=== PATIENT | male | born 1935 | race Caucasian/White ===

== ENCOUNTER 2017-02-28 12:48 | Emergency (ER) | payer MEDICARE, OTHER ==
[~2017-02-28 12:48] MED LIST: ACETSUP650 PR; ACETUDL PO; ALBUTEROL 2.5MG/3ML INH; ANALGESI EX; ANTI-FUNGAL2 % EX; ARGINAID PO; ARIXTRA2.5 SC; ASPERCREME101 EX; ATROVENT INH; ATV.5 PO; AZACTAM1 IV; BACTROCR TOP; BAZA TOP; BENTYL10 PO; BETADINE 10% EX; BUM1 PO; C1 PO; C25 PO; C5 PO; CALMOSEPTINE TOP; CIP5 PO; CORDARONE PO; COREG6 PO; COUMADIN3 MG PO; COUMADIN4 MG PO; COUMADIN6 MG PO; CRESTOR10 PO; DESITIN TOP; DIGITEK0.125 MG PO; DIL4TAB PO; DURA12 TOP; ELTA CREAM T; ENALAPRIL MALEATE PO; FAMOTIDINE 20 MG OR; GENASYME80 MG PO; GLUCERNA PO; HYDRO/APAP PO; HYDROCO; INSNOVR SC; KCL20UDL PO; KDUR20 PO; KLOR-CON 1010 MEQ PO; KLOR-CON M1010 MEQ PO; KLOR-CON M2020 MEQ PO; L20 PO; L40 PO; LAN25 PO; LANTUS SC; LEVAQUIN750 MG PO; LINEZOLID 600 MG PEG; LOP25 PO; LOPID6 PO; LOVAZA1 GM PO; MAGOX4 PO; MCZ25 PO; MICONAZOLE EX; MIRALAXPKT PO; MORPHINE IJ; MULTIPLE VIT PO; MYRBETRIQ25 MG PO; MYTAB GAS80 MG PO; NEUR300 PO; NEXIUM40 PO; NITROBID2 % TOP; NITROQUICK0.4 MG SL; NIZORAL A-D1 % TOP; NIZORSHAM T; NORCO PO; NORCO1 TA1 PO; NOVOLOG SC; NOVOLOGMIX SC; PACERONE400 MG PO; PEP20 PO; PHENERGAN (G25 MG/ML IV; PHENERGAN25 MG/ML IJ; PLAVIX PO; PR12.5 PO; PR12.5R PR; PR25 PO; PR25P IM; PRENAVITE PO; PRILO PO; PRIN2.5 PO; PROVENTSOL INH; REFRESH OP; REG PO; REG5 PO; REMERON30 MG PO; ROBAFEN DM1 ML OR; ROBITUSSIN DM PO; SANTYL250 MG/GM TOP; SILVADENE1 % TOP; T PO; TESS PO; TRANSSCOP TOP; TRIAMCINOLON0.13 EX; VASOTEC2 PO; VITAMIN C100 MG PO; ZITHROMAX500 MG PO; ZOFRAN4 PO; ZOFRAN8 PO; ZYDONE1 TA2 PO; [UNRECOGNIZED DRUG - CODE] IV; [UNRECOGNIZED DRUG - OTHER]; [UNRECOGNIZED DRUG - OTHER] OP; [UNRECOGNIZED DRUG - OTHER] OP; [UNRECOGNIZED DRUG - OTHER] PO; [UNRECOGNIZED DRUG - OTHER] PO; [UNRECOGNIZED DRUG - OTHER] PO; [UNRECOGNIZED DRUG - OTHER] TOP; [UNRECOGNIZED DRUG - OTHER] TOP
[2017-02-28 13:02] LABS: BASOPHILS 0.4 %; BASOPHILS ABSOLUTE 0.02 10/3/uL (0.0-0.16); EOSINOPHILS 0.4 %; EOSINOPHILS ABSOLUTE 0.02 10/3/uL (0.0-0.53); ER CBC TAT 0 Hrs 05 Mins; HEMATOCRIT 40.9 % (40.0-51.0); HEMOGLOBIN 14.4 g/dL (13.6-17.8); IMMATURE GRANULOCYTES 0.4 %; IMMATURE GRANULOCYTES ABSOLUTE 0.02 10/3/uL (0.0-0.11); LYMPHOCYTES 14.3 %; LYMPHOCYTES ABSOLUTE 0.78 10/3/uL (0.67-4.30); MEAN CORPUS HGB CONC 35.2 g/dL (32.0-36.0); MEAN CORPUSCULAR HEMOGLOB 31.9 pg (26.0-34.0); MEAN CORPUSCULAR VOLUME 90.7 fL (80-100); MEAN PLATELET VOLUME 9.5 fL (9.2-13.0); MONOCYTES 12.8 %; NEUTROPHILS 71.7 %; NEUTROPHILS ABSOLUTE 3.93 10/3/uL (2.02-8.40); PLATELET COUNT 159 10/3/uL (150-400); RBC DISTRIBUTION WIDTH 14.3 % (12.0-16.0); RED CELL COUNT 4.51 10/6/uL (4.7-6.1); WHITE BLOOD CELLS 5.5 10/3/uL (4.5-10.5)
[2017-02-28 13:03] LABS: MANUAL DIFF NO %
[2017-02-28 13:09] LABS: PROTIME (NOT ORD) 22.5 SEC (12.0-14.5)
[2017-02-28 13:10] LABS: PARTIAL THROMBO TIME 45.5 SEC (22.5-37.2)
[2017-02-28 13:21] LABS: A/G RATIO 0.6 (0.7-1.9); ALKALINE PHOSPHATASE 59 U/L (45-117); BUN (BLOOD UREA NITROGEN) 12 MG/DL (6-23); CALCIUM, SERUM 9.2 MG/DL (8.5-10.4); CHLORIDE, SERUM 97 MMOL/L (96-112); CO2 (CARBON DIOXIDE) 28 MMOL/L (24-34); CREATININE 0.93 MG/DL (0.70-1.30); GFR AFRICAN AMERICAN 90 ML/MIN (>=60); GFR NON AFRICAN AMERICAN 78 ML/MIN (>=60); GLOBULIN 4.8 G/DL (2.5-4.1); GLUCOSE, SERUM 129 MG/DL (60-99); POTASSIUM, SERUM 4.1 MMOL/L (3.5-5.3); SGOT(AST) 22 U/L (5-40); SGPT(ALT) 15 U/L (5-65); SODIUM, SERUM 133 MMOL/L (135-148); TOTAL BILIRUBIN 0.8 MG/DL (0-1.2); TOTAL PROTEIN 7.8 G/DL (6.0-8.5)
== END 2017-02-28 15:58 | disposition home or self-care (01) ==
LOC: ER 12:48
PROVIDERS: Hospitalist
DX: K29.70 Gastritis, unspecified, without bleeding (principal); I48.91 Unspecified atrial fibrillation; I25.2 Old myocardial infarction; E11.9 Type 2 diabetes mellitus without complications; Z88.0 Allergy status to penicillin; Z88.2 Allergy status to sulfonamides; Z79.01 Long term (current) use of anticoagulants; Z79.899 Other long term (current) drug therapy
CPT/HCPCS: 80053; 85025; 85610; 85730; 93005; 96374; 99284; J2550

== ENCOUNTER 2017-04-03 14:51 | Inpatient (IN) | payer MEDICARE, OTHER ==
--- NOTE | ~2017-04-03 | CN ---
Consultation Report [facility] [address] [place]. [address] NAME: RODNEY CORDERO : 37 STATUS : ADM Monica PAT#: [id number] AGE: 81 ADM/REG DATE : 04/03/17 MR#: [id number] REPORT SERV DATE: 04/04/17 DICTATED BY: JADA CAICEDO DATE: 04/04/17 REPORT STATUS : Draft TRANSCRIBED BY: MODL DATE: 04/04/17 INFECTIOUS DISEASE CONSULT DATE OF CONSULTATION: REASON FOR REFERRAL: Evaluation and treatment of foot infection. HISTORY OF PRESENT ILLNESS: The patient is a 81-year-old male with a history of diabetes mellitus, atrial fibrillation, coronary artery disease, peripheral vascular disease, ischemic cardiomyopathy. He has become increasingly debilitated and is now bed bound in the [facility]. He has had a history of decubitus ulcer on his sacrum that was treated over many years and is almost closed now. He [facility]. He has vascular ulcers and decubitus ulcers bilaterally on his feet. One on the plantar left foot has become increasingly severe and so he was brought in and admitted for that. It was just debrided with large amount of purulent material removed by Dr. Christie and sent for cultures. A culture that have been sent from that foot on 03/21/2017 about two weeks ago grew abundant Proteus mirabilis that was very sensitive. He is not having fevers and chills. He has neuropathy, so does not really feel very well. He had very good sensation in his foot and not systemically ill. No recent trauma or unusual environmental exposures other than being in a long-term care facility. PAST MEDICAL HISTORY: Otherwise unremarkable. MEDICATIONS: He is started on vancomycin and cefepime. ALLERGIES: HE HAS AN ALLERGY TO PENICILLIN, WHICH IS A RASH. SOCIAL HISTORY: He is . Past smoker. No history of alcohol or substance abuse. FAMILY HISTORY: Noncontributory. PHYSICAL EXAMINATION: GENERAL: Nontoxic elderly male, chronically ill appearing. Alert and oriented x3. VITAL SIGNS: His temperature here at present 98.4, has been normal since arrival, pulse 100, respirations 20, blood pressure 103/65. Weight 95 kg. HEENT: Sclerae clear. No oral lesions. LUNGS: Clear. HEART: Irregular. ABDOMEN: Soft, nontender. Positive bowel sounds. EXTREMITIES: Left foot has open area that was just debrided from top to bottom of the left foot between the second and third toe by Dr. Christie with some bleeding from it now since it was not completely unwrapped. No other acute-appearing lesions. Sacrum shows no signs of infection. Consultation Report [facility] [address] [place]. [address] NAME: RODNEY CORDERO : 37 STATUS : ADM Monica PAT#: [id number] AGE: 81 ADM/REG DATE : 04/03/17 MR#: [id number] REPORT SERV DATE: 04/04/17 DICTATED BY: JADA CAICEDO DATE: 04/04/17 REPORT STATUS : Draft TRANSCRIBED BY: KAMRYN DATE: 04/04/17 LABORATORY DATA: White count 14.6 when he came in, 12.4 today with hematocrit 35.3, platelets 290. Unremarkable differential. No white blood cell count. BUN and creatinine 11 and 0.59. IMPRESSION: Diabetic foot infection with chronic wounds. Vascular disease appears to be deep and is probably mixed su, include possible gram-positive cocci-like Staph, Strep, Enterococcus, gram-negative rods, and anaerobes. RECOMMENDATIONS: 1. We will agree with the vanc and cefepime that have been ordered. 2. We will add Flagyl. 3. Follow up cultures tomorrow. Change antibiotics as indicated. Finally, I will follow the patient with you. I appreciate very much your consulting on this patient. MAGGY Jada Caicedo M.D. / [id number] CC: Shlomo Barrera Jr, MD G Michael Ozborn, M.D. Robert Barnett III, M.D.
--- NOTE | ~2017-04-03 | CN ---
Consultation Report [facility] [address] [place]. [address] NAME: RODNEY CORDERO : 37 STATUS : DIS IN PAT#: [id number] AGE: 81 ADM/REG DATE : 04/04/17 MR#: [id number] REPORT SERV DATE: 04/19/17 DICTATED BY: ABELARDO CHRISTIE III DATE: 04/18/17 REPORT STATUS : Draft TRANSCRIBED BY: MODL DATE: 04/18/17 DATE OF CONSULTATION: 04/17/2017 INTERPRETATION OF A TRANSCUTANEOUS OXYGEN MONITORING TEST For evaluation of potential for healing of a transmetatarsal amputation or bhekc-lry-hznb amputation. The patient had calibration and oxygen challenge was performed after the initial analysis. Electrodes 2 and 4 were over the area of the foot with dismal readings of TCOM-RPI of 0.11 on the medial aspect of the midfoot and 0.38 on the lateral aspect of the midfoot on the left side. Neither responded to oxygen challenge. Ankle pressures or oxygen content was a mixed reading. The patient's #3 electrode was on the medial foot and gave a very poor reading of 0.26 compared to the control as an index. The oxygen challenge was without significant effect. Electrode 5 placed laterally on the ankle gave a more robust oxygen saturation reading of 0.97, but still no response on oxygen tap challenge. The electrode 6 placed in the medial knee area was normal with a 1.58 RPI reading. Oxygen challenge, however, was not beneficial. Overall, the evaluation would be extremely poor prognosis for transmetatarsal amputation with a more likely response for healing with a qagko-rak-qyib amputation, although there are still mixed signals. A transmetatarsal amputation at this point would be more of a debridement for control of necrotic tissue and potential sepsis. RB/ILANL Abelardo Christie III, M.D. / [id number] CC: MD Suleiman Castaneda M.D. Charles Scott Joels, M.D. [facility]
--- NOTE | ~2017-04-03 | OP ---
Record Of Operation [facility] [address] [place]. [address] NAME: RODNEY CORDERO : 37 STATUS : ADM IN PAT#: [id number] AGE: 81 ADM/REG DATE : 04/04/17 MR#: [id number] REPORT SERV DATE: 04/12/17 DICTATED BY: ABELARDO CHRISTIE III DATE: 04/12/17 REPORT STATUS : Draft TRANSCRIBED BY: MODChavez DATE: 04/12/17 DATE OF PROCEDURE: 04/12/2017 The patient is seen today, postoperative day #2, from a revascularization of the left lower extremity. He has severe ulcerative process in the left distal foot with infection that is eroding in the space between the 1st and 3rd toes where the second toe had been removed in the remote past. The patient continues to have warmth in his foot, but there is pus expressible from the foot that could be milked out of the opening. The tracts were probed 8 cm on the dorsal aspect and 6 cm on the plantar aspect of the subcu and into the plantar space. The area was irrigated and wound packed with Iodosorb-coated Kerlix sponges into the tracts and on to the ulcerative area. There was a large crevice open between these two toes that measures 5 and 0.5 cm in depth overall with a width of approximately 1.7 cm. The 2nd metatarsal head, which was exposed, broke off during the packing process, therefore, the debridement was a bone-level excisional debridement. No anesthesia was necessary due to severe neuropathy. After this was completed, the areas were probed and packed again and dressed with bulky dressing. This was an excisional debridement to the bone level in the distal left foot. The patient was again informed that amputation is going to be the best option exterminator helper termite, but he is not ready to accept amputation. Certainly, waiting for the results of response to revascularization is not that unreasonably. The patient is presently not eating and we will add supplemental feedings to him. Continue present local therapy, antibiotics, nutritional support, and await response to revascularization. The overall expectation is extremely guarded for salvage of his foot with unrealistic expectations for healing of the present wound that is noted and described above. The estimated blood loss was 2 mL. A time-out was called prior to the actual debridement process, which was done with tenotomy scissors and pickups. The bone was submitted to Pathology for analysis. RB/MODL Abelardo Christie III, M.D. / [id number] CC: MD Suleiman Castaneda M.D.
--- NOTE | ~2017-04-03 | OP ---
Record Of Operation [facility] [address] [place]. [address] NAME: RODNEY CORDERO : 37 STATUS : ADM IN PAT#: [id number] AGE: 81 ADM/REG DATE : 04/04/17 MR#: [id number] REPORT SERV DATE: 04/10/17 DICTATED BY: CHANCE NERI DATE: 04/10/17 REPORT STATUS : Draft TRANSCRIBED BY: MODL DATE: 04/10/17 DATE OF PROCEDURE: 04/08/2017 PREOPERATIVE DIAGNOSIS: Peripheral arterial disease with ulcers nonhealing, left foot. POSTOPERATIVE DIAGNOSIS: Peripheral arterial disease with ulcers nonhealing, left foot. PROCEDURE: 1. Left leg arteriogram. 2. Angioplasty of left popliteal. 3. Angioplasty of left posterior tibial and peroneal arteries. ANESTHESIA: Local with sedation. COMPLICATIONS: None. BLOOD LOSS: Minimal. HISTORY: The patient is a 81-year-old male with a history of diabetes, peripheral arterial disease, and nonhealing wounds on his left foot. It was felt he would benefit from arteriogram with intervention to improve perfusion. This was discussed in detail with the patient. He expressed understanding and desired to proceed. DESCRIPTION OF PROCEDURE: The patient was taken to the operating room and placed in the supine position. He was given IV sedation without complication. Both groins were prepped and draped in sterile fashion. Ultrasound was used to identify the common femoral artery on the right. 1% lidocaine was infiltrated in the skin and subcutaneous tissues. Under ultrasound guidance, an 18-gauge needle was placed into the common femoral artery. Wire was passed into the aorta, which was confirmed with fluoroscopy. The needle was removed and 6- German sheath was placed. A UF catheter was passed over the wire into the aorta with the help of the wire and it was then guided into common iliac artery on the left. Arteriogram shows a patent common, internal, and external iliac artery. Arteriogram was performed after placing the catheter into the superficial femoral artery and this shows a patent common femoral, profunda femoral, and superficial femoral artery proximally. The superficial femoral artery was patent on additional arteriogram to the distal thigh. There was stenosis in the popliteal artery above the knee. It was then patent at the knee and below. The peroneal artery was patent to the ankle with mild stenosis. The posterior tibial and anterior tibial arteries were occluded. There was reconstitution of plantar branches on the foot. The wire was placed. The sheath was exchanged for a 65 sheath and a 0.018 wire was guided into the posterior tibial artery to the ankle, but not onto the foot. A 3 mm balloon was used to angioplasty from the ankle to the origin of the posterior tibial artery. Post arteriogram shows it to be patent with no flow directly to the foot but filling a large collateral to the foot. The 0.018 wire was guided in the peroneal artery and it was angioplastied from the distal lower leg to it's origin and post arteriogram shows improved flow here with no residual stenosis. A 7 x 100 balloon was then used to angioplasty the popliteal artery. Post arteriogram here shows this to be widely patent. The command wire Record Of [facility] [address] [place]. [address] NAME: RODNEY CORDERO : 37 STATUS : ADM IN PAT#: [id number] AGE: 81 ADM/REG DATE : 04/04/17 MR#: [id number] REPORT SERV DATE: 04/10/17 DICTATED BY: CHANCE NERI DATE: 04/10/17 REPORT STATUS : Draft TRANSCRIBED BY: KAMRYN DATE: 04/10/17 was then guided down the posterior tibial artery and into the plantar branch. A 2 x 100 balloon was then used to angioplasty the plantar branch and distal posterior tibial artery. Post arteriogram shows it to be patent with residual dissection. This was angioplastied once again with a 2 mm balloon and post arteriogram shows this to be patent now with no residual dissection. This was felt to be an excellent result. The sheath was removed. The access was closed with StarClose device without difficulty. The patient tolerated the procedure well. He was taken to the recovery room in sterile condition. ISABELL/KAMRYN Chance Neri M.D. / [id number] CC: Chary Barnett M.D.
--- NOTE | ~2017-04-03 | OP ---
Record Of Operation [facility] [address] [place]. [address] NAME: RODNEY CORDERO : 37 STATUS : ADM Monica PAT#: [id number] AGE: 81 ADM/REG DATE : 04/03/17 MR#: [id number] REPORT SERV DATE: 04/04/17 DICTATED BY: ABELARDO CHRISTIE III DATE: 04/04/17 REPORT STATUS : Draft TRANSCRIBED BY: MODL DATE: 04/04/17 DATE OF PROCEDURE: 04/04/2017 PREOPERATIVE DIAGNOSIS: Abscess of the distal plantar space from an opening in the area from previous amputation of the second toe with resulting development of a plantar abscess and osteomyelitis. POSTOPERATIVE DIAGNOSIS: Abscess of the distal plantar space from an opening in the area from previous amputation of the second toe with resulting development of a plantar abscess and osteomyelitis. ANESTHESIA: None due to neuropathy. SURGEON: Abelardo Christie M.D. MOTEL CLERK: Majo Christie RN-[facility] PROCEDURE: Incision and drainage and excisional debridement of the distal left foot with culture sensitivity and packing. PROCEDURE IN DETAIL: A time-out was called and no dissension about the procedure to be performed was carried out. The wound was then prepped out the area of the whole left distal foot, and a tenotomy scissor was used to open the tissue in the webspace of the second toe opening approximately 4 cm to exteriorize bullous changes. Similarly, on the plantar surface, a tenotomy scissor was used to open the bullous tissues on the plantar space. Necrotic tissues were trimmed away and a very little bleeding encountered. The necrotic tissues were trimmed away excisionally exposing the second metatarsal distal head, which was intact and not obviously infected but by clinical diagnosis with osteomyelitis due to his exposure. The area was then debrided of all surrounding soft tissues that were present and devascularized for a true [address] muscle layer debridement into the actual plantar space. After this was done, hemostasis, which was minimally required was achieved with silver nitrate sticks and cultures were obtained initially during the excisional part of the operation, probing in the plantar space showed a probing of 7 cm from the toe level up into the plantar space. After this was done, the area was packed with Iodosorb Gel and iodoform gauze packing material and bulky dressing. Cultures were requested for anaerobic, aerobic, and fungal cultures. ESTIMATED BLOOD LOSS: 3 mL. COMPLICATIONS: There were no complications other than the obvious disease process described earlier. The patient will be placed on cefepime and vancomycin IV until cultures are returned. Record Of Operation [address] [address] NAME: RODNEY CORDERO : 37 STATUS : ADM Monica PAT#: [id number] AGE: 81 ADM/REG DATE : 04/03/17 MR#: [id number] REPORT SERV DATE: 04/04/17 DICTATED BY: ABELARDO CHRISTIE III DATE: 04/04/17 REPORT STATUS : Draft TRANSCRIBED BY: KAMRYN DATE: 04/04/17 RB/KAMRYN Abelardo Christie III, M.D. / [id number] CC: Shlomo Barrera Jr, MD G Michael Ozborn, M.D.
--- NOTE | ~2017-04-03 | CN ---
Consultation Report [facility] [address] [place]. [address] NAME: RODNEY CORDERO : 37 STATUS : ADM Monica PAT#: [id number] AGE: 81 ADM/REG DATE : 04/03/17 MR#: [id number] REPORT SERV DATE: 04/04/17 DICTATED BY: ABELARDO CHRISTIE III DATE: 04/04/17 REPORT STATUS : Draft TRANSCRIBED BY: MODL DATE: 04/04/17 SURGERY W[facility]AL[facility] CONSULT DATE OF CONSULTATION: 04/04/2017 HISTORY OF PRESENT ILLNESS: The patient is a 81-year-old, functionally paraplegic, diabetic, white male, followed in the [facility] for a number of years. The patient was admitted to the emergency department with nausea, diarrhea, depression, and leukocytosis. The patient was last seen in the [facility] about two weeks ago and was being followed for several ulcerative processes. The most active wound, for which he was being followed was in the left 2nd toe area where a toe actually fell off a few weeks ago and area has now become extensive and very active. The patient has had a fairly good healing process going on when seen two weeks ago but in the interim, he has had a tremendous deterioration in this spot. On examination, the area of the plantar region seems to be draining foul smelling, grayish pus with necrosis. The 2nd toe is absent but there is an open area with very poor healing. The patient had been referred to Dr. Joaquin Neri and was scheduled for later this month for a vascular procedure. He has extremely poor flow in his foot pedal regions. The patient has a past history of functional paraplegia and has been off and on physical therapy for a number of years. He has a past history of diabetes in reasonable control while he has been in the hospital, which has been a number of years. He is nutritionally fairly malnourished. He is functionally paraplegic and has very little enthusiasm for exercise on his own. The patient's overall past history includes peripheral vascular disease, diabetes, functional paraplegia, and situational depression. He has been on an offloading bed which has not been functioning and has also developed a recurrence of a sacral ulceration, which has been noticed in the last four weeks. He has a small ulceration on the right great toe, which seems to be healing reasonably well. He is also quite depressed. PHYSICAL EXAMINATION: GENERAL: The patient is an ill-appearing white male, in no acute distress at the time of this exam, complaining of some diarrhea and some nausea and anorexia and general malaise. HEENT: Showed no real lateralization. NECK: Decreased range of motion. CHEST: Clear from anterior to posterior. HEART: Regular rate and rhythm. ABDOMEN: Soft and slightly protuberant but not tender. EXTREMITIES: Very atrophic and functionally paraplegic with very little motor activity and much neuropathy in bilateral lower extremities. His right foot is very cool to touch, and there is an ulceration where his toenail had been removed a few weeks ago, but this seems to be relatively small being 3 x 3 x 2 mm with no evidence of active infection. There is a little erythema around it. The left foot is problematic. Left foot has monophasic Doppler pulses in dorsalis pedis and posterior tibial regions. The Consultation Report [facility] [id number] [facility] [place]. [address] NAME: RODNEY CORDERO : 37 STATUS : ADM Monica PAT#: [id number] AGE: 81 ADM/REG DATE : 04/03/17 MR#: [id number] REPORT SERV DATE: 04/04/17 DICTATED BY: ABELARDO CHRISTIE III DATE: 04/04/17 REPORT STATUS : Draft TRANSCRIBED BY: KAMRYN DATE: 04/04/17 foot is quite cool to touch even though it is very infected distally. There is an opening in the second toe amputated region that was 1.5 x 1.2 cm in size and a depth of 1.6 cm deep into a purulent area. There were bulbous changes anteriorly on the dorsum as well as on the plantar surface that extended from this site. Upon expression, foul smelling pus could be exuded from these areas in copious amounts. There is significant neuropathy. The patient had very little feeling even with this acute process noted. IMPRESSION: 1. The patient has sepsis related to plantar abscess with severe infection in the region and obvious osteomyelitis involving the distal second metatarsal bone, which is exposed. 2. The patient has diabetes mellitus, unclear control. 3. Depressed. 4. Functional paraplegic. 5. Malnutrition. RECOMMENDATION: The recommendation would be to do an incision and drainage and debridement of the left foot with cultures and covered with antibiotics. I have recommended a Vascular consult with Dr. Neri as well as Infectious Disease consultation with Dr. Sweet and local care. I have explained to the patient there is a high probability that he will require an amputation of the at least distal foot, more likely a ygjcq-egs-yffm amputation will be ultimately needed. I will await input from other consultants and the patient's progress with antibiotics, and local care and further evaluation including a Doppler arterial study and vascular input from Dr. Neri. RB/MODL Abelardo Christie III, M.D. / [id number] CC: Shlomo Barrera Jr, MD G Michael Ozborn, M.D. Mark Anderson, M.D. Charles Scott Joels, M.D. [facility]
--- NOTE | ~2017-04-03 | IDS ---
Interim Discharge Summary [facility] [address] [place]. [address] NAME: RODNEY CORDERO : 37 STATUS : ADM IN PAT#: [id number] AGE: 81 ADM/REG DATE : 04/04/17 MR#: [id number] REPORT SERV DATE: 04/12/17 DICTATED BY: Chary BRAUN DATE: 04/12/17 REPORT STATUS : Draft TRANSCRIBED BY: MODL DATE: 04/12/17 ADMISSION DATE: 04/04/2017 DISCHARGE DATE: INTERIM SUMMARY DATE: 04/12/2017. DIAGNOSES AT THE TIME OF INTERIM SUMMARY: Sepsis present on admission, resolved, peripheral arterial disease status post PTCA to the popliteal artery, the posterior tibial artery and peroneal artery on 04/10/2017, left plantar abscess status post I and D on 04/04/2017, [id number]-[id number] protein-calorie malnutrition, insulin-requiring diabetes, deep tissue injury at the sacrum present on admission; chronic atrial fibrillation, on Coumadin; and depression. ACTIVE CONSULTATIONS: Vascular Surgery and General Surgery for wound Care. PROCEDURES: PTCA of vasculature to the left leg on 04/10/2017 and left plantar abscess I and D on 04/04/2017. BRIEF HOSPITAL COURSE: A 81-year-old male patient with long-standing lower extremity wounds was admitted with sepsis and associated with the left plantar abscess. The patient was seen by Vascular and General Surgery. He underwent I and D of his abscess on 04/04/2017 and has subsequently undergone PTCA to improve blood flow. He is currently on broad-spectrum antimicrobial therapy per Infectious Disease. At the time of this dictation, we are hoping that we make some wound care progress since his revascularization procedure; however, it is quite likely that given the severity of his wounds, the severity of his chronic medical condition and the nature of his current nutritional status that he is unlikely to heal these and will require a more proximal amputation. At the present time, the patient is adamantly refusing amputation stating that his legs are going to heal. When we re-evaluate . If the patient has made no significant progress, we may need to involve the ethics committee or Palliative Care to have further conversation with the patient regarding the need for amputation for control of his infection and for wound healing. The patient's hospitalist care will be provided by another member of the hospitalist team starting 04/13/2017 with ongoing co-management by Wound Care, distant input from Vascular Surgery, and antimicrobial stewardship by Infectious Disease. [facility]/KAMRYN Chary Braun M.D. / [id number] CC: Pati Dominguez MD Interim Discharge Summary [address] [address] NAME: RODNEY CORDERO : 37 STATUS : ADM IN [facility]#: [id number] AGE: 81 ADM/REG DATE : 04/04/17 MR#: [id number] REPORT SERV DATE: 04/12/17 DICTATED BY: Chary BRAUN DATE: 04/12/17 REPORT STATUS : Draft TRANSCRIBED BY: KAMRYN DATE: 04/12/17 Suleiman Hernandez M.D.
--- NOTE | ~2017-04-03 | CN ---
Consultation Report [facility] [address] [place]. [address] NAME: RODNEY CORDERO : 37 STATUS : ADM Monica PAT#: [id number] AGE: 81 ADM/REG DATE : 04/03/17 MR#: [id number] REPORT SERV DATE: 04/04/17 DICTATED BY: DILLON BEEBE DATE: 04/04/17 REPORT STATUS : Draft TRANSCRIBED BY: MODChavez DATE: 04/04/17 PSYCHIATRIC CONSULTATION DATE OF CONSULTATION: 04/04/2017 I reviewed this patient's current and old medical records. I had a telephone discussion with his . HISTORY OF PRESENT ILLNESS: He was admitted with an elevated white cell count. I was consulted concerning depression. He reported feeling "bad" at the time of admission. His had reported that she thought he was depressed for about three to four weeks prior to this admission. However, when I spoke to her this morning, she said she did not mean he was clinically depressed, she really meant to say he was upset by his failure to get [facility] the [facility] and the ongoing medical problems. 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 Recently, he has been trying to get more physical therapy through [facility] sources, but he has been completely frustrated in this endeavor. He denies ever feeling depressed. He said "I am just frustrated." He never had any suicidal ideation. He said "I would never do that. I believe in God. I do not want to go to [facility]." SOCIAL HISTORY: He is . He and his have no children. He has been a half-way resident for a number of years. MENTAL STATUS: He was pleasant and cooperative in attitude. His mood was mildly dysphoric, which he attributed to his failure to get a satisfactory [facility] from the [facility]. His affect was full and appropriate. His thinking was logical. He had no delusions. He had no hallucinations. He was oriented to time, place, and person. DIAGNOSIS: Depression, associated with general medical conditions, mild. RECOMMENDATIONS: I see no need for further psychiatric intervention. I will sign off. ROSSY/KAMRYN Dillon Beebe M.D. / [id number] CC: Shlomo Barrera Jr, MD G Michael Ozborn, M.D.
--- NOTE | ~2017-04-03 | DS ---
Discharge Summary [facility] [address] [place]. [address] NAME: RODNEY CORDERO : 37 STATUS : DIS IN PAT#: [id number] AGE: 81 ADM/REG DATE : 04/04/17 MR#: [id number] REPORT SERV DATE: 04/19/17 DICTATED BY: PATI DIXON DATE: 04/18/17 REPORT STATUS : Draft TRANSCRIBED BY: KAMRYN DATE: 04/18/17 ADMISSION DATE: 04/04/2017 DISCHARGE DATE: 04/18/2017 DISCHARGE DIAGNOSES: 1. Sepsis syndrome. 2. Left foot abscess. 3. Left foot osteomyelitis. 4. Severe peripheral arterial disease status post angioplasty of left popliteal artery. 5. Diabetes mellitus A1c 6. 6. Chronic constipation. 7. Gastroesophageal reflux disease. 8. Major depression. 9. Functional paraplegia. 10.Chronic sacral ulcers. 11.Paroxysmal atrial fibrillation on chronic anticoagulation with warfarin. INVASIVE PROCEDURES: 1. Incision and drainage and excisional debridement of the distal left foot with culture, sensitivity, and packing. Performed by Dr. Reddy Christie, on 04/04/2017. 2. Left leg angiogram. 3. Angioplasty of left popliteal artery. 4. Angioplasty of left posterior tibial and peroneal arteries. 5. The patient declined amputation of the left foot as recommended by Podiatry. DISCHARGE CONDITION: Critical. HISTORY OF PRESENT ILLNESS: For detailed HPI, please make reference to Dr. Jigar Jovel's dictation on 04/03/2017. In brief, this is a 81-year-old male who is chronically bed ridden for the past 6 years who is a resident of skilled nursing at [facility], noted to be on a Clinitron bed all the time because of recurrent decubitus ulcer. He presented to the hospital with complaints of generalized fatigue, malaise, depressed mood, and also noted to have a chronic ulcer on the left foot. In the ER, blood pressure was 102/53, heart rate was 107, temperature was 98.9. Physical exam reviewed, there is ulceration of both right and left foot, worse on the left. Laboratory data showed creatinine of 0.59, lactate of 1.3, WBC 14.6, and an assessment of sepsis syndrome was made, likely source of infection due to left toe ulcers with concern of possible osteomyelitis was made in the ER. The patient was subsequently admitted to the Hospitalist Service. HOSPITAL COURSE: 1. Sepsis syndrome secondary to left toe left foot cellulitis and left first two toes osteomyelitis. The patient's blood cultures were obtained. Wound cultures were Discharge Summary [address] [place]. [address] NAME: RODNEY CORDERO : 37 STATUS : DIS IN PAT#: [id number] AGE: 81 ADM/REG DATE : 04/04/17 MR#: [id number] REPORT SERV DATE: 04/19/17 DICTATED BY: PATI DIXON DATE: 04/18/17 REPORT STATUS : Draft TRANSCRIBED BY: KAMRYN DATE: 04/18/17 obtained. The patient was started on broad-spectrum antibiotics with IV vancomycin, cefepime, and metronidazole. The patient's white blood cell gradually marginally trended down from 14 to 11 and remained stable. Scientific Database Curator Dr. Christie was consulted and recommended an incision and drainage of the left toe. It was noted that the patient had an abscess in the left toe consistent with cellulitis of the plantar surface. An MRI imaging of the left foot was obtained that confirmed the presence of osteomyelitis involving the distal portion of the third metatarsal and proximal phalanx. Noted was a prior amputation of the second digit. The patient was counseled extensively on the need for amputation of the left mid trans-tarsal amputation of the left foot in order to promote adequate healing but patient declined. Despite extensive counseling, the patient continued to decline amputation, requested to continue a trial of broad-spectrum antibiotics. After several days on antibiotics, it was noted that the wound was not improving. Scientific Database Curator and the hospitalist team called the patient's and also informed the patient of the risks and benefits of continued ongoing IV antibiotics therapy as well as the fact that his wound was not improving. The patient insisted that he does not want amputation but would rather continue IV antibiotics. At this point, [facility] was contacted and the patient was discharged back to [facility] to continue empiric broad-spectrum antibiotics. 2. Peripheral arterial disease. The patient had an arterial Doppler that shows severe stenosis of the popliteal and tibial artery. Vascular Surgery was consulted who performed a left angioplasty of the popliteal and tibial artery without any significant complications. 3. Major depression. During the course of this admission, Psychiatry was consulted to comment on the patient, the possibility of the patient's known depression interfering with the patient's critical thinking and judgment. However per Psychiatry evaluation, the patient was competent to make decisions for himself. The patient was advised to continue current antidepressant and continue followup with primary care physician. 4. Paroxysmal atrial fibrillation. The patient's heart rate remained controlled within the course of this admission. Beta-ritu was continued. The patient's warfarin was also continued. During the course of this admission, the patient's INR remained within therapeutic zone. 5. Diabetes mellitus. The patient's blood sugar was tightly controlled throughout the course of this admission with subcutaneous insulin. The patient was advised to continue subcutaneously at time of discharge. 6. Sacral decubitus ulcer. The patient was continued on Clinitron bed. Wound care was also performed throughout the course of admission. No evidence of infection. No evidence of this wound as a source of infection in this patient. The patient was advised to continue Clinitron bed and wound dressing as per skilled nursing protocol. DISCHARGE MEDICATIONS: 1. IV vancomycin. 2. IV cefepime. 3. IV metronidazole. 4. Warfarin. 5. Amiodarone 200 mg p.o. daily. 6. Plavix 75 mg p.o. daily. 7. Scopolamine patch q.72 hours. Discharge Summary [address] [address] NAME: RODNEY CORDERO : 37 STATUS : DIS IN [facility]GED WITH [facility]#: [id number] AGE: 81 ADM/REG DATE : 04/04/17 MR#: [id number] REPORT SERV DATE: 04/19/17 DICTATED BY: PATI DIXON DATE: 04/18/17 REPORT STATUS : Draft TRANSCRIBED BY: KAMRYN DATE: 04/18/17 DISCHARGE CONDITION: Critical. DISCHARGE CODE STATUS: Limited DNR. DISCHARGE DISPOSITION: [facility]. DISCHARGE ACTIVITIES: As tolerated. Greater than 35 minutes was used to prepare this patient's discharge, reconcile medication, and advised the patient on discharge plans and followup. DICTATED BY: MD DANIELLA Castaneda/KAMRYN Pati Dixon MD / [id number] CC: MD Suleiman Castaneda M.D. David Bosshardt, M.D. Robert Barnett III, M.D.
--- NOTE | ~2017-04-03 | HP ---
History And Physical [address] [place]. [address] NAME: RODNEY CORDERO : 37 STATUS : ADM Monica PAT#: [id number] AGE: 81 ADM/REG DATE : 04/03/17 MR#: [id number] REPORT SERV DATE: 04/04/17 DICTATED BY: ERNESTIEN GONZALEZ DATE: 04/03/17 REPORT STATUS : Draft TRANSCRIBED BY: MODL DATE: 04/03/17 DATE OF ADMISSION: 04/03/2017 EXAMINING PHYSICIAN: Ernestine Gonzalez M.D. HISTORY OF PRESENT ILLNESS: This is a 81-year-old white male who is chronically bedridden over six years duration in the retirement at [facility]. He is on a Clinitron bed all the time because he had decubitus ulcer, and has been followed by Dr. Reddy Christie for the decubitus ulcer and ulcers of the toes, peripheral vascular disease. He is going to see Dr. Joaquin Neri to have an angioplasty done on 04/17/2017. He was referred to Dr. Trevor Sweet for evaluation prior to the surgery. He did have a spinal abscess in the past with back surgery by Dr. Celestin, done at [facility] and has been paralyzed since that time. He has a wheelchair, but does not use it, does not get out of the Clinitron bed. His goal is to be able to stand and walk again and get out of the retirement. He has been pushing to get the [facility] to help [facility] as he has run out of resources regarding Medicare for physical therapy and attempts at ambulation. He presented to the emergency room today. He is status post a crick in his neck. He was given some Flexeril two days ago by Dr. Hernandez that has helped his neck some. He was seen by Dr. Pedrito Suazo, who found him to have a white blood cell count of 14,000. Dr. Suazo was not able to explain the 14,000 blood count, desired the patient to be admitted to the hospital for further evaluation and treatment. The patient does have a history of spinal abscess and had the decubitus ulcer that was infected for about six years and subsequently has healed. Now he has ulcers of his feet, but also some peripheral vascular disease with a planned therapy. He asked that he be observed to rule out serious illness because he felt so bad today. His says he has been feeling bad for the last three to four weeks with more depression than he has ever had before and a low mood. He is not on any antidepressants that he knows of. The patient is admitted to observation to rule out serious illness and evaluated for further procedures by his platform consultant physicians who know him well . PAST MEDICAL HISTORY: Last in the hospital he says about three years ago. There is a discharge summary from 12/03/2014, that indicated he had a first toenail paronychia with MRSA and was treated by Dr. Trimble. He was discharged with chronic bedsore that was improving, diabetes, atrial fibrillation which was chronic, and chronic arterial disease both coronary and peripheral. He does have an ischemic cardiomyopathy as well with ejection fraction 26% noted in the past. HOME MEDICATIONS: Include the following: Coumadin 2 mg p.o. daily at 4:00 p.m., Plavix 75 mg p.o. daily, amiodarone 200 mg p.o. daily for atrial fibrillation, artificial tears, Klor- Con 20 mEq p.o. b.i.d., Myrbetriq 25 mg p.o. daily, Flonase, Reglan one tablet before meals and bedtime 10 mg, transdermal scopolamine 1.5 mg per 72 hours, Flexeril 10 mg p.o. q.8 hours p.r.n. History And Physical [address] [address] NAME: RODNEY CORDERO : 37 STATUS : ADM Monica PAT#: [id number] AGE: 81 ADM/REG DATE : 04/03/17 MR#: [id number] REPORT SERV DATE: 04/04/17 DICTATED BY: ERNESTINE GONZALEZ DATE: 04/03/17 REPORT STATUS : Draft TRANSCRIBED BY: KAMRYN DATE: 04/03/17 Home medications are being identified at this time and confirmed. SOCIAL HISTORY: He is . He and his have no children. He attends [employer] most the time. He grew up going to [facility] [employer] and [employer] in the past. He grew up in the [facility] [place], attended [employer] and [employer]. He is estranged from his brother because of conflict over the parent's house and accusation of stealing remodeling materials from his house. He does not smoke cigarettes or take any alcohol. FAMILY HISTORY: Mother of ovarian cancer. Father of an unknown cancer. He has a brother, who is alive and well, but estranged. REVIEW OF SYSTEMS: He had a spinal abscess sometime in the past and has had paraplegia since that time since he had surgery by Dr. Celestin. He had ESBL E. coli sepsis in the past, diabetic foot ulcers, chronic decubitus ulcer, and is on Clinitron bed chronically. He is on chronic anticoagulation. He has atrial fibrillation and did present to the emergency room with atrial fibrillation with a rapid ventricular response that is decreased during his stay here. He has a history of coronary artery disease, history of myocardial infarction in the past, ischemic cardiomyopathy, ejection fraction may have increased from 26% to 30% to 35% in the past, and history of MRSA. He has had no recent chest pain or shortness of breath. No fever, chills, night sweats, melena, or hematemesis. He has had weight loss recently. He does not like the food at [facility]. He has been depressed only for short period of time according to . He is not listed on any antidepressants. He is not given any medicine to help his appetite. He has slept better at night with the Flexeril recently. The remainder of the review of systems is negative. PHYSICAL EXAMINATION: GENERAL: Elderly white male, in no acute distress. VITAL SIGNS: His blood pressure initially was 102/53 with a heart rate of 107, respiratory rate 18, oxygen saturation 98% on 2 L per minute on nasal cannula. HEENT: EOMI. Sclerae clear. Conjunctivae pink. NECK: No bruit. There is no JVD. He does have some stiffness to his neck. He is unable to rotate his neck to the left. CHEST: Clear to A and P. HEART: Regular S1, S2 without murmur, gallop, or click. ABDOMEN: Obese, nontender. Bowel sounds positive. No organomegaly is felt. EXTREMITIES: He has trace edema. He has toe ulcers over the remaining three toes on the left foot and on the right side, there is less ulceration. NEUROLOGIC: I get a trace DTRs at the knees. He has extension contractures of his ankles. He does not move to plantar stimulation. His storage specialist is equal and symmetric. He is alert and oriented. He is begging not to go back to [facility] [facility] today. He is very hard of hearing. LYMPHATICS: There is no adenopathy palpable. History And Physical [address] [place] [address] NAME: RODNEY CORDERO : 37 STATUS : ADM Monica PAT#: [id number] AGE: 81 ADM/REG DATE : 04/03/17 MR#: [id number] REPORT SERV DATE: 04/04/17 DICTATED BY: ERNESTINE GONZALEZ DATE: 04/03/17 REPORT STATUS : Draft TRANSCRIBED BY: KAMRYN DATE: 04/03/17 SKIN: The left foot appears to have vascular insufficiency with chronic toe ulceration. LABORATORY: His urinalysis showed 1 white cell, 1 red cell per high-powered field, specific gravity 1.09, pH 7. The CMP showed a sodium 132, potassium 4.7, creatinine 0.88, BUN 12, glucose 122. Albumin was 2.2. Troponin less than 0.02. Lipase 134. Lactate level was 1.30. His hemoglobin was 12.7, hematocrit 36.9, white count 14,000, platelets 326,000. His INR is 1.9. Chest x-ray showed mild central venous congestion. ASSESSMENT: 1. Leukocytosis. White count 14,000. 2. Peripheral vascular disease for angioplasty by Dr. Neri. The patient wants to see if the date may be moved up some and desires to see Dr. Neri during the hospitalization. 3. Toe ulcers, followed by Dr. Scott. The patient is scheduled to see Dr. Christie tomorrow and desires that the Dr. Scott come to see the patient during the hospitalization. 4. Progressive immobility over six years duration. 5. Diabetes type 2, fairly well controlled today. 6. Sickness with nausea and diarrhea after being given cathartic for constipation in the retirement. 7. Depression, new onset about six weeks duration now. I am going to consult Dr. Galicia. I am going to start Remeron 15 mg p.o. at bedtime to have him with rest, relaxation, and sleep and also to stimulate his appetite. 8. Protein calorie malnutrition. His albumin level of 2.2 is suspicious for this and we will check a prealbumin level to confirm shorter term. He may not do well with healing if surgery is done on the feet especially without muslim of blood flow. 9. Anorexia. 10.Unrealistic goals for medical therapy to be able walk again after six years of being bed-ridden. 11.History of back injury at the time surgery, operating for the spinal abscess in the past. I am going to go ahead and check a CBC in the morning, check a procalcitonin, consult Dr. Sweet who has to see him next week prior to surgery anyway and see if there is any other preparation needs to be made prior to surgery. If Dr. Neri is willing to proceed, we will keep beyond the ulceration; however, I see no acute medical problems to intervene with at present. MUMTAZ/KAMRYN Ernestine Gonzalez M.D. / [id number] CC: Shlomo Barrera Jr, MD G Michael Ozborn, M.D. History And Physical [address] [address] NAME: RODNEY CORDERO : 37 STATUS : ADM Monica PAT#: [id number] AGE: 81 ADM/REG DATE : 04/03/17 MR#: [id number] REPORT SERV DATE: 04/04/17 DICTATED BY: ERNSETINE GONZALEZ DATE: 04/03/17 REPORT STATUS : Draft TRANSCRIBED BY: MODL DATE: 04/03/17 Gomez Mcmillan Jr., III, M.D. Dillon Galicia M.D. Trevor Sweet M.D.
[2017-04-03 14:18] LABS: BASOPHILS 0.2 %; BASOPHILS ABSOLUTE 0.03 10/3/uL (0.0-0.16); EOSINOPHILS 0.5 %; EOSINOPHILS ABSOLUTE 0.08 10/3/uL (0.0-0.53); HEMATOCRIT 36.9 % (40.0-51.0); HEMOGLOBIN 12.7 g/dL (13.6-17.8); IMMATURE GRANULOCYTES 0.8 %; IMMATURE GRANULOCYTES ABSOLUTE 0.12 10/3/uL (0.0-0.11); LYMPHOCYTES 9.1 %; LYMPHOCYTES ABSOLUTE 1.33 10/3/uL (0.67-4.30); MEAN CORPUS HGB CONC 34.4 g/dL (32.0-36.0); MEAN CORPUSCULAR HEMOGLOB 30.7 pg (26.0-34.0); MEAN CORPUSCULAR VOLUME 89.1 fL (80-100); MEAN PLATELET VOLUME 9.5 fL (9.2-13.0); MONOCYTES ABSOLUTE 1.17 10/3/uL (0.21-1.20); NEUTROPHILS 81.4 %; NEUTROPHILS ABSOLUTE 11.88 10/3/uL (2.02-8.40); RED CELL COUNT 4.14 10/6/uL (4.7-6.1)
[2017-04-03 14:19] LABS: ER CBC TAT 0 Hrs 07 Mins; MANUAL DIFF NO %; PLATELET COUNT 326 10/3/uL (150-400); WHITE BLOOD CELLS 14.6 10/3/uL (4.5-10.5)
[2017-04-03 14:27] LABS: INTERNATIONAL NORMAL RATI 1.9 UNITS (-); PARTIAL THROMBO TIME 44.5 SEC (22.5-37.2)
[2017-04-03 14:36] LABS: ALKALINE PHOSPHATASE 61 U/L (45-117); BUN (BLOOD UREA NITROGEN) 12 MG/DL (6-23); CALCIUM, SERUM 8.4 MG/DL (8.5-10.4); CHEST PAIN PROFILE TAT 0 Hrs 24 Mins; CHLORIDE, SERUM 97 MMOL/L (96-112); CO2 (CARBON DIOXIDE) 30 MMOL/L (24-34); CREATININE 0.88 MG/DL (0.70-1.30); DIRECT BILIRUBIN 0.2 MG/DL (0.0-0.4); GFR AFRICAN AMERICAN 95 ML/MIN (>=60); GFR NON AFRICAN AMERICAN 82 ML/MIN (>=60); GLUCOSE, SERUM 122 MG/DL (60-99); INDIRECT BILIRUBIN(NOT ORDER) 0.6 MG/DL (0.1-0.9); SGPT(ALT) 15 U/L (5-65); SODIUM, SERUM 132 MMOL/L (135-148); TOTAL BILIRUBIN 0.8 MG/DL (0-1.2); TOTAL PROTEIN 7.1 G/DL (6.0-8.5); TROPONIN I <0.02 NG/ML (<0.05)
[2017-04-03 14:37] LABS: ALBUMIN 2.2 G/DL (3.5-5.0)
[2017-04-03 14:38] LABS: POTASSIUM, SERUM 4.5 MMOL/L (3.5-5.3); SGOT(AST) 22 U/L (5-40)
[2017-04-03 14:57] LABS: ASCORBIC ACID (UR NOT ORDER) NEG (NEG); BILIRUBIN, URINE NEGATIVE (NEG); ER URINALYSIS TAT 0 Hrs 09 Mins; KETONE, URINE NEGATIVE (NEG); LEUKOCYTE ESTERASE(NOT OR NEG (NEG); NITRITE (URINE) NEG (NEG); WBC (NOT ORDERED) (RFLEX) 1 (0-5)
[2017-04-03] MEDS ORDERED: PLAVIX PO (17:06)
[2017-04-03] MEDS ORDERED: C2 PO (17:07)
[2017-04-03] MEDS ORDERED: REG PO (17:08)
[2017-04-03] MEDS ORDERED: MOMUD PO (17:08)
[2017-04-03] MEDS ORDERED: PR12.5 PO (17:08)
[2017-04-03] MEDS ORDERED: BISR PR (17:09)
[2017-04-03] MEDS ORDERED: LIOR10 PO (17:09)
[2017-04-03] MEDS ORDERED: CORDARONE PO (17:10)
[2017-04-03] MEDS ORDERED: MYRBETRIQ25 MG PO (17:11)
[2017-04-03] MEDS ORDERED: REFRESH OPH (17:11)
[2017-04-03] MEDS ORDERED: KLOR-CON M2020 MEQ PO (17:11)
[2017-04-03] MEDS ORDERED: L40 PO (17:11)
[2017-04-03] MEDS ORDERED: FLONASE NAS (17:12)
[2017-04-03] MEDS ORDERED: TRANSSCOP TOP (17:13)
[2017-04-03 19:58] LABS: PREALBUMIN 9.8 MG/DL (17.0-43.0)
[2017-04-03 20:09] LABS: SED RATE 85 MM/HR (0-15)
[2017-04-03 20:31] LABS: PROCALCITONIN 0.26 ng/mL (<0.5)
[2017-04-04 05:36] LABS: BASOPHILS 0.2 %; BASOPHILS ABSOLUTE 0.02 10/3/uL (0.0-0.16); EOSINOPHILS ABSOLUTE 0.12 10/3/uL (0.0-0.53); HEMATOCRIT 35.3 % (40.0-51.0); IMMATURE GRANULOCYTES 0.8 %; LYMPHOCYTES 9.2 %; LYMPHOCYTES ABSOLUTE 1.14 10/3/uL (0.67-4.30); MEAN CORPUSCULAR HEMOGLOB 30.3 pg (26.0-34.0); MEAN CORPUSCULAR VOLUME 89.1 fL (80-100); MEAN PLATELET VOLUME 9.3 fL (9.2-13.0); MONOCYTES ABSOLUTE 1.24 10/3/uL (0.21-1.20); NEUTROPHILS 78.8 %; NEUTROPHILS ABSOLUTE 9.78 10/3/uL (2.02-8.40); PLATELET COUNT 290 10/3/uL (150-400); RBC DISTRIBUTION WIDTH 14.9 % (12.0-16.0); RED CELL COUNT 3.96 10/6/uL (4.7-6.1); WHITE BLOOD CELLS 12.4 10/3/uL (4.5-10.5)
[2017-04-04 05:37] LABS: MANUAL DIFF NO %
[2017-04-04 05:40] LABS: A/G RATIO 0.5 (0.7-1.9); ALBUMIN 2.1 G/DL (3.5-5.0); ALKALINE PHOSPHATASE 55 U/L (45-117); BUN (BLOOD UREA NITROGEN) 11 MG/DL (6-23); CALCIUM, SERUM 8.4 MG/DL (8.5-10.4); CHLORIDE, SERUM 100 MMOL/L (96-112); CO2 (CARBON DIOXIDE) 24 MMOL/L (24-34); CREATININE 0.59 MG/DL (0.70-1.30); GFR AFRICAN AMERICAN 112 ML/MIN (>=60); GFR NON AFRICAN AMERICAN 96 ML/MIN (>=60); GLOBULIN 4.3 G/DL (2.5-4.1); GLUCOSE, SERUM 111 MG/DL (60-99); POTASSIUM, SERUM 3.9 MMOL/L (3.5-5.3); SGOT(AST) 13 U/L (5-40); SGPT(ALT) 12 U/L (5-65); SODIUM, SERUM 133 MMOL/L (135-148); TOTAL BILIRUBIN 0.8 MG/DL (0-1.2); TOTAL PROTEIN 6.4 G/DL (6.0-8.5)
[2017-04-04 06:46] LABS: INTERNATIONAL NORMAL RATI 1.9 UNITS (-); PROTIME (NOT ORD) 21.5 SEC (12.0-14.5)
[2017-04-05 04:10] LABS: BASOPHILS 0.1 %; BASOPHILS ABSOLUTE 0.02 10/3/uL (0.0-0.16); EOSINOPHILS 0.2 %; EOSINOPHILS ABSOLUTE 0.03 10/3/uL (0.0-0.53); HEMATOCRIT 37.6 % (40.0-51.0); HEMOGLOBIN 12.8 g/dL (13.6-17.8); IMMATURE GRANULOCYTES 0.7 %; IMMATURE GRANULOCYTES ABSOLUTE 0.11 10/3/uL (0.0-0.11); LYMPHOCYTES 5.7 %; LYMPHOCYTES ABSOLUTE 0.87 10/3/uL (0.67-4.30); MEAN CORPUSCULAR HEMOGLOB 30.5 pg (26.0-34.0); MEAN CORPUSCULAR VOLUME 89.5 fL (80-100); MEAN PLATELET VOLUME 9.3 fL (9.2-13.0); MONOCYTES 6.8 %; MONOCYTES ABSOLUTE 1.04 10/3/uL (0.21-1.20); NEUTROPHILS 86.5 %; NEUTROPHILS ABSOLUTE 13.23 10/3/uL (2.02-8.40); PLATELET COUNT 272 10/3/uL (150-400); WHITE BLOOD CELLS 15.3 10/3/uL (4.5-10.5)
[2017-04-05 04:13] LABS: MANUAL DIFF NO %
[2017-04-05 04:28] LABS: PROTIME (NOT ORD) 22.1 SEC (12.0-14.5)
[2017-04-05 04:42] LABS: CALCIUM, SERUM 8.3 MG/DL (8.5-10.4); CHLORIDE, SERUM 101 MMOL/L (96-112); CO2 (CARBON DIOXIDE) 25 MMOL/L (24-34); CREATININE 0.85 MG/DL (0.70-1.30); GFR AFRICAN AMERICAN 96 ML/MIN (>=60); GFR NON AFRICAN AMERICAN 83 ML/MIN (>=60); GLUCOSE, SERUM 121 MG/DL (60-99); PREALBUMIN 8.8 MG/DL (17.0-43.0); SODIUM, SERUM 134 MMOL/L (135-148)
[2017-04-05 04:48] LABS: BUN (BLOOD UREA NITROGEN) 16 MG/DL (6-23); POTASSIUM, SERUM 4.8 MMOL/L (3.5-5.3)
[2017-04-05 06:59] LABS: PROCALCITONIN 0.42 ng/mL (<0.5)
[2017-04-06 04:18] LABS: BASOPHILS 0.2 %; BASOPHILS ABSOLUTE 0.02 10/3/uL (0.0-0.16); EOSINOPHILS 0.9 %; EOSINOPHILS ABSOLUTE 0.09 10/3/uL (0.0-0.53); HEMATOCRIT 36.3 % (40.0-51.0); HEMOGLOBIN 12.4 g/dL (13.6-17.8); IMMATURE GRANULOCYTES 0.7 %; IMMATURE GRANULOCYTES ABSOLUTE 0.07 10/3/uL (0.0-0.11); LYMPHOCYTES ABSOLUTE 0.63 10/3/uL (0.67-4.30); MANUAL DIFF NO %; MEAN CORPUS HGB CONC 34.2 g/dL (32.0-36.0); MEAN CORPUSCULAR HEMOGLOB 30.4 pg (26.0-34.0); MEAN PLATELET VOLUME 9.2 fL (9.2-13.0); MONOCYTES 8.4 %; MONOCYTES ABSOLUTE 0.88 10/3/uL (0.21-1.20); NEUTROPHILS 83.8 %; NEUTROPHILS ABSOLUTE 8.81 10/3/uL (2.02-8.40); PLATELET COUNT 242 10/3/uL (150-400); RBC DISTRIBUTION WIDTH 14.9 % (12.0-16.0); RED CELL COUNT 4.08 10/6/uL (4.7-6.1); WHITE BLOOD CELLS 10.5 10/3/uL (4.5-10.5)
[2017-04-06 04:29] LABS: INTERNATIONAL NORMAL RATI 2.3 UNITS (-); PROTIME (NOT ORD) 24.9 SEC (12.0-14.5)
[2017-04-06 04:34] LABS: BUN (BLOOD UREA NITROGEN) 15 MG/DL (6-23); CALCIUM, SERUM 8.7 MG/DL (8.5-10.4); CHLORIDE, SERUM 99 MMOL/L (96-112); CO2 (CARBON DIOXIDE) 25 MMOL/L (24-34); CREATININE 0.75 MG/DL (0.70-1.30); GFR AFRICAN AMERICAN 101 ML/MIN (>=60); GFR NON AFRICAN AMERICAN 87 ML/MIN (>=60); GLUCOSE, SERUM 131 MG/DL (60-99); POTASSIUM, SERUM 3.9 MMOL/L (3.5-5.3); SODIUM, SERUM 134 MMOL/L (135-148)
[2017-04-07 04:52] LABS: BASOPHILS 0.2 %; BASOPHILS ABSOLUTE 0.02 10/3/uL (0.0-0.16); EOSINOPHILS 1.2 %; EOSINOPHILS ABSOLUTE 0.11 10/3/uL (0.0-0.53); HEMOGLOBIN 11.8 g/dL (13.6-17.8); IMMATURE GRANULOCYTES 0.8 %; IMMATURE GRANULOCYTES ABSOLUTE 0.07 10/3/uL (0.0-0.11); LYMPHOCYTES 8.7 %; MEAN CORPUS HGB CONC 33.7 g/dL (32.0-36.0); MEAN CORPUSCULAR HEMOGLOB 30.3 pg (26.0-34.0); MEAN CORPUSCULAR VOLUME 89.7 fL (80-100); MEAN PLATELET VOLUME 9.2 fL (9.2-13.0); MONOCYTES ABSOLUTE 0.83 10/3/uL (0.21-1.20); NEUTROPHILS 80.1 %; PLATELET COUNT 223 10/3/uL (150-400); RBC DISTRIBUTION WIDTH 15.1 % (12.0-16.0); WHITE BLOOD CELLS 9.2 10/3/uL (4.5-10.5)
[2017-04-07 04:55] LABS: INTERNATIONAL NORMAL RATI 2.1 UNITS (-); MANUAL DIFF NO %; PROTIME (NOT ORD) 23.6 SEC (12.0-14.5)
[2017-04-07 05:02] LABS: BUN (BLOOD UREA NITROGEN) 14 MG/DL (6-23); CALCIUM, SERUM 8.8 MG/DL (8.5-10.4); CHLORIDE, SERUM 100 MMOL/L (96-112); CO2 (CARBON DIOXIDE) 29 MMOL/L (24-34); CREATININE 0.72 MG/DL (0.70-1.30); GFR AFRICAN AMERICAN 103 ML/MIN (>=60); GFR NON AFRICAN AMERICAN 89 ML/MIN (>=60); GLUCOSE, SERUM 117 MG/DL (60-99); SODIUM, SERUM 132 MMOL/L (135-148); VANCOMYCIN TROUGH 18.7 MCG/ML (10.0-20.0)
[2017-04-07 05:09] LABS: POTASSIUM, SERUM 4.8 MMOL/L (3.5-5.3)
[2017-04-08 04:46] LABS: BASOPHILS 0.1 %; BASOPHILS ABSOLUTE 0.01 10/3/uL (0.0-0.16); HEMATOCRIT 34.6 % (40.0-51.0); HEMOGLOBIN 11.6 g/dL (13.6-17.8); IMMATURE GRANULOCYTES 0.9 %; IMMATURE GRANULOCYTES ABSOLUTE 0.09 10/3/uL (0.0-0.11); LYMPHOCYTES 7.5 %; LYMPHOCYTES ABSOLUTE 0.73 10/3/uL (0.67-4.30); MEAN CORPUS HGB CONC 33.5 g/dL (32.0-36.0); MEAN CORPUSCULAR HEMOGLOB 29.8 pg (26.0-34.0); MEAN CORPUSCULAR VOLUME 88.9 fL (80-100); MEAN PLATELET VOLUME 9.2 fL (9.2-13.0); MONOCYTES 9.8 %; MONOCYTES ABSOLUTE 0.95 10/3/uL (0.21-1.20); NEUTROPHILS 80.7 %; NEUTROPHILS ABSOLUTE 7.85 10/3/uL (2.02-8.40); PLATELET COUNT 228 10/3/uL (150-400); RBC DISTRIBUTION WIDTH 15.1 % (12.0-16.0); RED CELL COUNT 3.89 10/6/uL (4.7-6.1); WHITE BLOOD CELLS 9.7 10/3/uL (4.5-10.5)
[2017-04-08 04:47] LABS: MANUAL DIFF NO %
[2017-04-08 04:58] LABS: BUN (BLOOD UREA NITROGEN) 15 MG/DL (6-23); CALCIUM, SERUM 8.3 MG/DL (8.5-10.4); CHLORIDE, SERUM 98 MMOL/L (96-112); CO2 (CARBON DIOXIDE) 29 MMOL/L (24-34); CREATININE 0.68 MG/DL (0.70-1.30); GFR AFRICAN AMERICAN 105 ML/MIN (>=60); GFR NON AFRICAN AMERICAN 91 ML/MIN (>=60); GLUCOSE, SERUM 127 MG/DL (60-99); SODIUM, SERUM 133 MMOL/L (135-148)
[2017-04-08 05:01] LABS: POTASSIUM, SERUM 3.7 MMOL/L (3.5-5.3)
[2017-04-08 06:11] LABS: INTERNATIONAL NORMAL RATI 2.1 UNITS (-); PROTIME (NOT ORD) 23.7 SEC (12.0-14.5)
[2017-04-09 05:31] LABS: INTERNATIONAL NORMAL RATI 1.9 UNITS (-); PROTIME (NOT ORD) 21.4 SEC (12.0-14.5)
[2017-04-09 05:34] LABS: BASOPHILS 0.1 %; BASOPHILS ABSOLUTE 0.01 10/3/uL (0.0-0.16); EOSINOPHILS 0.6 %; EOSINOPHILS ABSOLUTE 0.06 10/3/uL (0.0-0.53); HEMATOCRIT 35.7 % (40.0-51.0); IMMATURE GRANULOCYTES 0.9 %; IMMATURE GRANULOCYTES ABSOLUTE 0.09 10/3/uL (0.0-0.11); LYMPHOCYTES 6.6 %; MEAN CORPUS HGB CONC 33.6 g/dL (32.0-36.0); MEAN CORPUSCULAR HEMOGLOB 30.2 pg (26.0-34.0); MEAN CORPUSCULAR VOLUME 89.9 fL (80-100); MEAN PLATELET VOLUME 9.3 fL (9.2-13.0); MONOCYTES 8.7 %; MONOCYTES ABSOLUTE 0.92 10/3/uL (0.21-1.20); NEUTROPHILS 83.1 %; NEUTROPHILS ABSOLUTE 8.75 10/3/uL (2.02-8.40); PLATELET COUNT 246 10/3/uL (150-400); RED CELL COUNT 3.97 10/6/uL (4.7-6.1); WHITE BLOOD CELLS 10.5 10/3/uL (4.5-10.5)
[2017-04-09 05:35] LABS: MANUAL DIFF NO %
[2017-04-09 05:38] LABS: BUN (BLOOD UREA NITROGEN) 15 MG/DL (6-23); CALCIUM, SERUM 8.2 MG/DL (8.5-10.4); CHLORIDE, SERUM 97 MMOL/L (96-112); CO2 (CARBON DIOXIDE) 29 MMOL/L (24-34); GFR AFRICAN AMERICAN 111 ML/MIN (>=60); GFR NON AFRICAN AMERICAN 96 ML/MIN (>=60); GLUCOSE, SERUM 124 MG/DL (60-99); POTASSIUM, SERUM 3.9 MMOL/L (3.5-5.3); SODIUM, SERUM 134 MMOL/L (135-148)
[2017-04-10 05:35] LABS: BASOPHILS 0.1 %; BASOPHILS ABSOLUTE 0.01 10/3/uL (0.0-0.16); EOSINOPHILS 1.2 %; EOSINOPHILS ABSOLUTE 0.13 10/3/uL (0.0-0.53); HEMATOCRIT 35.1 % (40.0-51.0); HEMOGLOBIN 11.9 g/dL (13.6-17.8); IMMATURE GRANULOCYTES 1.4 %; IMMATURE GRANULOCYTES ABSOLUTE 0.15 10/3/uL (0.0-0.11); LYMPHOCYTES 11.2 %; MEAN CORPUS HGB CONC 33.9 g/dL (32.0-36.0); MEAN CORPUSCULAR HEMOGLOB 30.3 pg (26.0-34.0); MEAN CORPUSCULAR VOLUME 89.3 fL (80-100); MEAN PLATELET VOLUME 9.2 fL (9.2-13.0); MONOCYTES 9.2 %; MONOCYTES ABSOLUTE 0.99 10/3/uL (0.21-1.20); NEUTROPHILS 76.9 %; NEUTROPHILS ABSOLUTE 8.28 10/3/uL (2.02-8.40); PLATELET COUNT 225 10/3/uL (150-400); RBC DISTRIBUTION WIDTH 15.1 % (12.0-16.0); RED CELL COUNT 3.93 10/6/uL (4.7-6.1); WHITE BLOOD CELLS 10.8 10/3/uL (4.5-10.5)
[2017-04-10 05:38] LABS: MANUAL DIFF NO %
[2017-04-10 05:42] LABS: INTERNATIONAL NORMAL RATI 1.9 UNITS (-); PROTIME (NOT ORD) 21.2 SEC (12.0-14.5)
[2017-04-10 05:56] LABS: ALKALINE PHOSPHATASE 47 U/L (45-117); BUN (BLOOD UREA NITROGEN) 21 MG/DL (6-23); CHLORIDE, SERUM 98 MMOL/L (96-112); CO2 (CARBON DIOXIDE) 27 MMOL/L (24-34); CREATININE 0.63 MG/DL (0.70-1.30); DIRECT BILIRUBIN 0.2 MG/DL (0.0-0.4); GFR AFRICAN AMERICAN 109 ML/MIN (>=60); GFR NON AFRICAN AMERICAN 94 ML/MIN (>=60); GLUCOSE, SERUM 133 MG/DL (60-99); INDIRECT BILIRUBIN(NOT ORDER) 0.2 MG/DL (0.1-0.9); PHOSPHORUS, SERUM 2.3 MG/DL (2.5-4.5); POTASSIUM, SERUM 4.3 MMOL/L (3.5-5.3); SGOT(AST) 18 U/L (5-40); SGPT(ALT) 10 U/L (5-65); SODIUM, SERUM 134 MMOL/L (135-148); TOTAL BILIRUBIN 0.4 MG/DL (0-1.2); TOTAL PROTEIN 6.3 G/DL (6.0-8.5)
[2017-04-11 06:41] LABS: BASOPHILS 0.1 %; BASOPHILS ABSOLUTE 0.01 10/3/uL (0.0-0.16); EOSINOPHILS 0.8 %; EOSINOPHILS ABSOLUTE 0.08 10/3/uL (0.0-0.53); HEMATOCRIT 35.4 % (40.0-51.0); HEMOGLOBIN 11.7 g/dL (13.6-17.8); IMMATURE GRANULOCYTES ABSOLUTE 0.11 10/3/uL (0.0-0.11); LYMPHOCYTES 7.2 %; LYMPHOCYTES ABSOLUTE 0.76 10/3/uL (0.67-4.30); MEAN CORPUS HGB CONC 33.1 g/dL (32.0-36.0); MEAN CORPUSCULAR HEMOGLOB 29.8 pg (26.0-34.0); MEAN CORPUSCULAR VOLUME 90.1 fL (80-100); MEAN PLATELET VOLUME 9.4 fL (9.2-13.0); MONOCYTES 6.5 %; MONOCYTES ABSOLUTE 0.69 10/3/uL (0.21-1.20); NEUTROPHILS 84.4 %; NEUTROPHILS ABSOLUTE 8.96 10/3/uL (2.02-8.40); PLATELET COUNT 232 10/3/uL (150-400); RBC DISTRIBUTION WIDTH 15.3 % (12.0-16.0); RED CELL COUNT 3.93 10/6/uL (4.7-6.1); WHITE BLOOD CELLS 10.6 10/3/uL (4.5-10.5)
[2017-04-11 06:42] LABS: MANUAL DIFF NO %
[2017-04-11 06:50] LABS: INTERNATIONAL NORMAL RATI 1.9 UNITS (-); PROTIME (NOT ORD) 21.2 SEC (12.0-14.5)
[2017-04-11 07:02] LABS: BUN (BLOOD UREA NITROGEN) 18 MG/DL (6-23); CALCIUM, SERUM 8.7 MG/DL (8.5-10.4); CHLORIDE, SERUM 98 MMOL/L (96-112); CO2 (CARBON DIOXIDE) 29 MMOL/L (24-34); CREATININE 0.63 MG/DL (0.70-1.30); GFR AFRICAN AMERICAN 109 ML/MIN (>=60); GFR NON AFRICAN AMERICAN 94 ML/MIN (>=60); GLUCOSE, SERUM 121 MG/DL (60-99); POTASSIUM, SERUM 4.4 MMOL/L (3.5-5.3); SODIUM, SERUM 133 MMOL/L (135-148); VANCOMYCIN TROUGH 18.9 MCG/ML (10.0-20.0)
[2017-04-12 05:25] LABS: BASOPHILS 0.2 %; BASOPHILS ABSOLUTE 0.02 10/3/uL (0.0-0.16); EOSINOPHILS 0.5 %; EOSINOPHILS ABSOLUTE 0.05 10/3/uL (0.0-0.53); HEMATOCRIT 34.6 % (40.0-51.0); HEMOGLOBIN 11.6 g/dL (13.6-17.8); IMMATURE GRANULOCYTES 1.3 %; IMMATURE GRANULOCYTES ABSOLUTE 0.14 10/3/uL (0.0-0.11); LYMPHOCYTES 8.7 %; LYMPHOCYTES ABSOLUTE 0.93 10/3/uL (0.67-4.30); MEAN CORPUS HGB CONC 33.5 g/dL (32.0-36.0); MEAN CORPUSCULAR VOLUME 89.4 fL (80-100); MEAN PLATELET VOLUME 9.4 fL (9.2-13.0); MONOCYTES ABSOLUTE 1.06 10/3/uL (0.21-1.20); NEUTROPHILS 79.3 %; NEUTROPHILS ABSOLUTE 8.43 10/3/uL (2.02-8.40); PLATELET COUNT 235 10/3/uL (150-400); RBC DISTRIBUTION WIDTH 15.6 % (12.0-16.0); RED CELL COUNT 3.87 10/6/uL (4.7-6.1); WHITE BLOOD CELLS 10.6 10/3/uL (4.5-10.5)
[2017-04-12 05:26] LABS: INTERNATIONAL NORMAL RATI 2.1 UNITS (-); PROTIME (NOT ORD) 23.2 SEC (12.0-14.5)
[2017-04-12 05:27] LABS: MANUAL DIFF NO %
[2017-04-12 05:38] LABS: A/G RATIO 0.5 (0.7-1.9); ALBUMIN 2.1 G/DL (3.5-5.0); ALKALINE PHOSPHATASE 51 U/L (45-117); BUN (BLOOD UREA NITROGEN) 20 MG/DL (6-23); CALCIUM, SERUM 8.5 MG/DL (8.5-10.4); CHLORIDE, SERUM 97 MMOL/L (96-112); CO2 (CARBON DIOXIDE) 27 MMOL/L (24-34); CREATININE 0.66 MG/DL (0.70-1.30); GFR AFRICAN AMERICAN 107 ML/MIN (>=60); GFR NON AFRICAN AMERICAN 92 ML/MIN (>=60); GLOBULIN 4.4 G/DL (2.5-4.1); GLUCOSE, SERUM 125 MG/DL (60-99); POTASSIUM, SERUM 4.1 MMOL/L (3.5-5.3); SGOT(AST) 21 U/L (5-40); SGPT(ALT) 8 U/L (5-65); SODIUM, SERUM 133 MMOL/L (135-148); TOTAL BILIRUBIN 0.5 MG/DL (0-1.2); TOTAL PROTEIN 6.5 G/DL (6.0-8.5)
[2017-04-13 06:46] LABS: BASOPHILS 0.1 %; BASOPHILS ABSOLUTE 0.02 10/3/uL (0.0-0.16); EOSINOPHILS 0.8 %; EOSINOPHILS ABSOLUTE 0.11 10/3/uL (0.0-0.53); HEMATOCRIT 33.8 % (40.0-51.0); HEMOGLOBIN 11.6 g/dL (13.6-17.8); IMMATURE GRANULOCYTES 1.2 %; IMMATURE GRANULOCYTES ABSOLUTE 0.17 10/3/uL (0.0-0.11); LYMPHOCYTES ABSOLUTE 1.11 10/3/uL (0.67-4.30); MEAN CORPUS HGB CONC 34.3 g/dL (32.0-36.0); MEAN CORPUSCULAR HEMOGLOB 29.9 pg (26.0-34.0); MEAN CORPUSCULAR VOLUME 87.1 fL (80-100); MEAN PLATELET VOLUME 9.3 fL (9.2-13.0); MONOCYTES 9.3 %; MONOCYTES ABSOLUTE 1.29 10/3/uL (0.21-1.20); NEUTROPHILS 80.6 %; PLATELET COUNT 223 10/3/uL (150-400); RBC DISTRIBUTION WIDTH 15.8 % (12.0-16.0); RED CELL COUNT 3.88 10/6/uL (4.7-6.1); WHITE BLOOD CELLS 13.8 10/3/uL (4.5-10.5)
[2017-04-13 06:47] LABS: MANUAL DIFF NO %
[2017-04-13 06:51] LABS: INTERNATIONAL NORMAL RATI 2.3 UNITS (-)
[2017-04-13 06:58] LABS: BUN (BLOOD UREA NITROGEN) 21 MG/DL (6-23); CALCIUM, SERUM 8.6 MG/DL (8.5-10.4); CHLORIDE, SERUM 97 MMOL/L (96-112); CO2 (CARBON DIOXIDE) 28 MMOL/L (24-34); CREATININE 0.71 MG/DL (0.70-1.30); GFR AFRICAN AMERICAN 103 ML/MIN (>=60); GFR NON AFRICAN AMERICAN 89 ML/MIN (>=60); GLUCOSE, SERUM 130 MG/DL (60-99); POTASSIUM, SERUM 4.4 MMOL/L (3.5-5.3); SODIUM, SERUM 131 MMOL/L (135-148)
[2017-04-13 14:38] LABS: PROCALCITONIN 0.26 ng/mL (<0.5)
[2017-04-13 16:00] LABS: CARBOXYHEMOGLOBIN 1.4 % (0-3); HCO3 (ACTUAL BICARBONATE) 25.3 MEQ/L (23-27); HEMOBLOGIN CONTENT 12.1 G/DL (14-18); INSTRUMENT SERIAL # 8083; METHEMOGLOBIN 0.1 % (0-3); O2 CONTENT 15.4 VOL% (18-24); PCO2 (CO2 TENSION) 35 MMHG (35-45); PO2 (O2 TENSION) 61 MMHG (79-93); SAMPLE Arterial; pH 7.48 (7.37-7.43)
[2017-04-13 16:01] LABS: ALLENS TEST Pos
[2017-04-13 16:58] LABS: BASOPHILS 0.1 %; BASOPHILS ABSOLUTE 0.01 10/3/uL (0.0-0.16); EOSINOPHILS 0.9 %; EOSINOPHILS ABSOLUTE 0.09 10/3/uL (0.0-0.53); HEMATOCRIT 35.5 % (40.0-51.0); HEMOGLOBIN 11.9 g/dL (13.6-17.8); IMMATURE GRANULOCYTES 1.3 %; IMMATURE GRANULOCYTES ABSOLUTE 0.14 10/3/uL (0.0-0.11); LYMPHOCYTES 8.1 %; LYMPHOCYTES ABSOLUTE 0.86 10/3/uL (0.67-4.30); MEAN CORPUS HGB CONC 33.5 g/dL (32.0-36.0); MEAN CORPUSCULAR HEMOGLOB 29.8 pg (26.0-34.0); MEAN PLATELET VOLUME 9.4 fL (9.2-13.0); MONOCYTES 8.4 %; MONOCYTES ABSOLUTE 0.89 10/3/uL (0.21-1.20); NEUTROPHILS 81.2 %; NEUTROPHILS ABSOLUTE 8.57 10/3/uL (2.02-8.40); PLATELET COUNT 215 10/3/uL (150-400); RBC DISTRIBUTION WIDTH 15.8 % (12.0-16.0); RED CELL COUNT 3.99 10/6/uL (4.7-6.1); WHITE BLOOD CELLS 10.6 10/3/uL (4.5-10.5)
[2017-04-13 17:00] LABS: MANUAL DIFF NO %
[2017-04-14 07:15] LABS: INTERNATIONAL NORMAL RATI 3.1 UNITS (-)
[2017-04-14 07:16] LABS: BASOPHILS 0.2 %; BASOPHILS ABSOLUTE 0.02 10/3/uL (0.0-0.16); EOSINOPHILS 0.9 %; EOSINOPHILS ABSOLUTE 0.09 10/3/uL (0.0-0.53); HEMOGLOBIN 9.8 g/dL (13.6-17.8); LYMPHOCYTES 17.4 %; LYMPHOCYTES ABSOLUTE 1.71 10/3/uL (0.67-4.30); MEAN CORPUS HGB CONC 34.9 g/dL (32.0-36.0); MEAN CORPUSCULAR HEMOGLOB 30.2 pg (26.0-34.0); MEAN CORPUSCULAR VOLUME 86.5 fL (80-100); MEAN PLATELET VOLUME 8.8 fL (9.2-13.0); MONOCYTES 7.7 %; MONOCYTES ABSOLUTE 0.76 10/3/uL (0.21-1.20); NEUTROPHILS 71.8 %; NEUTROPHILS ABSOLUTE 7.06 10/3/uL (2.02-8.40); PLATELET COUNT 184 10/3/uL (150-400); RED CELL COUNT 3.25 10/6/uL (4.7-6.1); WHITE BLOOD CELLS 9.8 10/3/uL (4.5-10.5)
[2017-04-14 07:17] LABS: HEMATOCRIT 28.1 % (40.0-51.0); MANUAL DIFF NO %
[2017-04-14 07:22] LABS: PROTIME (NOT ORD) 31.9 SEC (12.0-14.5)
[2017-04-14 07:37] LABS: PLATELET ESTIMATE ADQ (ADEQUATE)
[2017-04-14 07:38] LABS: RBC MORPHOLOGY NORM (NORMAL)
[2017-04-14 08:13] LABS: BUN (BLOOD UREA NITROGEN) 18 MG/DL (6-23); CALCIUM, SERUM 9.1 MG/DL (8.5-10.4); CHLORIDE, SERUM 95 MMOL/L (96-112); CO2 (CARBON DIOXIDE) 26 MMOL/L (24-34); CREATININE 0.69 MG/DL (0.70-1.30); GFR AFRICAN AMERICAN 105 ML/MIN (>=60); GFR NON AFRICAN AMERICAN 90 ML/MIN (>=60); GLUCOSE, SERUM 112 MG/DL (60-99); PHOSPHORUS, SERUM 2.1 MG/DL (2.5-4.5); POTASSIUM, SERUM 3.9 MMOL/L (3.5-5.3); SODIUM, SERUM 130 MMOL/L (135-148)
[2017-04-15 06:00] LABS: BASOPHILS 0.1 %; BASOPHILS ABSOLUTE 0.01 10/3/uL (0.0-0.16); EOSINOPHILS 1.2 %; EOSINOPHILS ABSOLUTE 0.14 10/3/uL (0.0-0.53); IMMATURE GRANULOCYTES 1.6 %; IMMATURE GRANULOCYTES ABSOLUTE 0.18 10/3/uL (0.0-0.11); LYMPHOCYTES 8.7 %; LYMPHOCYTES ABSOLUTE 0.99 10/3/uL (0.67-4.30); MEAN CORPUS HGB CONC 33.3 g/dL (32.0-36.0); MEAN CORPUSCULAR HEMOGLOB 29.8 pg (26.0-34.0); MEAN PLATELET VOLUME 9.2 fL (9.2-13.0); MONOCYTES ABSOLUTE 1.14 10/3/uL (0.21-1.20); NEUTROPHILS 78.4 %; PLATELET COUNT 224 10/3/uL (150-400); RBC DISTRIBUTION WIDTH 16.1 % (12.0-16.0); WHITE BLOOD CELLS 11.4 10/3/uL (4.5-10.5)
[2017-04-15 06:01] LABS: HEMATOCRIT 35.7 % (40.0-51.0); HEMOGLOBIN 11.9 g/dL (13.6-17.8); MANUAL DIFF NO %; MEAN CORPUSCULAR VOLUME 89.5 fL (80-100); RED CELL COUNT 3.99 10/6/uL (4.7-6.1)
[2017-04-15 06:06] LABS: INTERNATIONAL NORMAL RATI 2.9 UNITS (-); PROTIME (NOT ORD) 29.7 SEC (12.0-14.5)
[2017-04-15 06:18] LABS: BUN (BLOOD UREA NITROGEN) 16 MG/DL (6-23); CALCIUM, SERUM 8.2 MG/DL (8.5-10.4); CHLORIDE, SERUM 99 MMOL/L (96-112); CO2 (CARBON DIOXIDE) 27 MMOL/L (24-34); CREATININE 0.76 MG/DL (0.70-1.30); GFR AFRICAN AMERICAN 101 ML/MIN (>=60); GFR NON AFRICAN AMERICAN 87 ML/MIN (>=60); GLUCOSE, SERUM 112 MG/DL (60-99); PHOSPHORUS, SERUM 1.8 MG/DL (2.5-4.5); SODIUM, SERUM 128 MMOL/L (135-148); VANCOMYCIN TROUGH 20.9 MCG/ML (10.0-20.0)
[2017-04-15 06:19] LABS: POTASSIUM, SERUM 4.4 MMOL/L (3.5-5.3)
[2017-04-15 19:50] LABS: BUN (BLOOD UREA NITROGEN) 19 MG/DL (6-23); CALCIUM, SERUM 8.4 MG/DL (8.5-10.4); CHLORIDE, SERUM 95 MMOL/L (96-112); CO2 (CARBON DIOXIDE) 28 MMOL/L (24-34); CREATININE 0.88 MG/DL (0.70-1.30); GFR AFRICAN AMERICAN 95 ML/MIN (>=60); GFR NON AFRICAN AMERICAN 82 ML/MIN (>=60); SODIUM, SERUM 131 MMOL/L (135-148)
[2017-04-15 19:51] LABS: GLUCOSE, SERUM 157 MG/DL (60-99)
[2017-04-16 05:57] LABS: BASOPHILS 0.2 %; BASOPHILS ABSOLUTE 0.02 10/3/uL (0.0-0.16); EOSINOPHILS 1.1 %; EOSINOPHILS ABSOLUTE 0.11 10/3/uL (0.0-0.53); HEMOGLOBIN 11.9 g/dL (13.6-17.8); IMMATURE GRANULOCYTES 2.2 %; IMMATURE GRANULOCYTES ABSOLUTE 0.22 10/3/uL (0.0-0.11); LYMPHOCYTES 10.5 %; LYMPHOCYTES ABSOLUTE 1.04 10/3/uL (0.67-4.30); MEAN CORPUSCULAR HEMOGLOB 30.3 pg (26.0-34.0); MEAN CORPUSCULAR VOLUME 89.1 fL (80-100); MEAN PLATELET VOLUME 9.4 fL (9.2-13.0); MONOCYTES 10.3 %; MONOCYTES ABSOLUTE 1.02 10/3/uL (0.21-1.20); NEUTROPHILS 75.7 %; NEUTROPHILS ABSOLUTE 7.52 10/3/uL (2.02-8.40); PLATELET COUNT 234 10/3/uL (150-400); RBC DISTRIBUTION WIDTH 16.1 % (12.0-16.0); RED CELL COUNT 3.93 10/6/uL (4.7-6.1); WHITE BLOOD CELLS 9.9 10/3/uL (4.5-10.5)
[2017-04-16 06:00] LABS: MANUAL DIFF NO %
[2017-04-16 06:12] LABS: BUN (BLOOD UREA NITROGEN) 18 MG/DL (6-23); CALCIUM, SERUM 8.4 MG/DL (8.5-10.4); CHLORIDE, SERUM 98 MMOL/L (96-112); CO2 (CARBON DIOXIDE) 26 MMOL/L (24-34); CREATININE 0.69 MG/DL (0.70-1.30); GFR AFRICAN AMERICAN 105 ML/MIN (>=60); GFR NON AFRICAN AMERICAN 90 ML/MIN (>=60); POTASSIUM, SERUM 3.9 MMOL/L (3.5-5.3); SODIUM, SERUM 132 MMOL/L (135-148)
[2017-04-16 06:14] LABS: GLUCOSE, SERUM 110 MG/DL (60-99)
[2017-04-16 06:15] LABS: INTERNATIONAL NORMAL RATI 2.8 UNITS (-); PROTIME (NOT ORD) 29.5 SEC (12.0-14.5)
[2017-04-17 05:57] LABS: BASOPHILS 0.2 %; BASOPHILS ABSOLUTE 0.02 10/3/uL (0.0-0.16); EOSINOPHILS 1.4 %; EOSINOPHILS ABSOLUTE 0.13 10/3/uL (0.0-0.53); HEMOGLOBIN 11.9 g/dL (13.6-17.8); IMMATURE GRANULOCYTES 2.9 %; IMMATURE GRANULOCYTES ABSOLUTE 0.26 10/3/uL (0.0-0.11); LYMPHOCYTES 11.5 %; LYMPHOCYTES ABSOLUTE 1.03 10/3/uL (0.67-4.30); MANUAL DIFF NO %; MEAN CORPUS HGB CONC 33.1 g/dL (32.0-36.0); MEAN CORPUSCULAR HEMOGLOB 29.8 pg (26.0-34.0); MEAN PLATELET VOLUME 9.4 fL (9.2-13.0); MONOCYTES 8.9 %; NEUTROPHILS 75.1 %; NEUTROPHILS ABSOLUTE 6.75 10/3/uL (2.02-8.40); PLATELET COUNT 231 10/3/uL (150-400); RBC DISTRIBUTION WIDTH 16.4 % (12.0-16.0)
[2017-04-17 05:59] LABS: INTERNATIONAL NORMAL RATI 2.9 UNITS (-); PROTIME (NOT ORD) 30.2 SEC (12.0-14.5)
[2017-04-17 06:11] LABS: BUN (BLOOD UREA NITROGEN) 16 MG/DL (6-23); CALCIUM, SERUM 8.5 MG/DL (8.5-10.4); CHLORIDE, SERUM 99 MMOL/L (96-112); CO2 (CARBON DIOXIDE) 28 MMOL/L (24-34); CREATININE 0.75 MG/DL (0.70-1.30); GFR AFRICAN AMERICAN 101 ML/MIN (>=60); GFR NON AFRICAN AMERICAN 87 ML/MIN (>=60); GLUCOSE, SERUM 89 MG/DL (60-99); PHOSPHORUS, SERUM 2.4 MG/DL (2.5-4.5); SODIUM, SERUM 134 MMOL/L (135-148)
[2017-04-18 05:53] LABS: HEMATOCRIT 35.6 % (40.0-51.0); HEMOGLOBIN 11.9 g/dL (13.6-17.8); MEAN CORPUS HGB CONC 33.4 g/dL (32.0-36.0); MEAN CORPUSCULAR HEMOGLOB 30.2 pg (26.0-34.0); MEAN CORPUSCULAR VOLUME 90.4 fL (80-100); MEAN PLATELET VOLUME 9.4 fL (9.2-13.0); PLATELET COUNT 218 10/3/uL (150-400); RBC DISTRIBUTION WIDTH 16.4 % (12.0-16.0); RED CELL COUNT 3.94 10/6/uL (4.7-6.1); WHITE BLOOD CELLS 11.8 10/3/uL (4.5-10.5)
[2017-04-18 05:54] LABS: MANUAL DIFF YES %
[2017-04-18 06:01] LABS: BUN (BLOOD UREA NITROGEN) 16 MG/DL (6-23); CALCIUM, SERUM 8.3 MG/DL (8.5-10.4); CHLORIDE, SERUM 101 MMOL/L (96-112); CO2 (CARBON DIOXIDE) 25 MMOL/L (24-34); CREATININE 0.82 MG/DL (0.70-1.30); GFR AFRICAN AMERICAN 97 ML/MIN (>=60); GFR NON AFRICAN AMERICAN 84 ML/MIN (>=60); PHOSPHORUS, SERUM 2.1 MG/DL (2.5-4.5); POTASSIUM, SERUM 4.3 MMOL/L (3.5-5.3); SODIUM, SERUM 134 MMOL/L (135-148)
[2017-04-18 06:03] LABS: GLUCOSE, SERUM 113 MG/DL (60-99)
[2017-04-18 06:15] LABS: BAND NEUTROPHILS 5 %; IMMATURE GRANS ABSOLUTE (CALC) 0.35 10/3/uL (0.0-0.11); LYMPHOCYTES 3 %; LYMPHOCYTES ABSOLUTE (CALC) 0.35 10/3/uL (0.67-4.30); METAMYELOCYTES 2 %; MONOCYTES 3 %; MONOCYTES ABSOLUTE (CALC) 0.35 10/3/uL (0.21-1.20); MYELOCYTES 1 %; NEUTROPHILS ABSOLUTE (CALC) 10.74 10/3/uL (2.02-8.40); PLATELET ESTIMATE ADQ (ADEQUATE); RBC MORPHOLOGY NORM (NORMAL); SEGMENTED NEUTROPHIL (0) 86 %; TOTAL NUCLEATED CELLS 100
[2017-04-18 06:20] LABS: INTERNATIONAL NORMAL RATI 3.4 UNITS (-); PROTIME (NOT ORD) 33.8 SEC (12.0-14.5)
== END 2017-04-18 19:55 | DRG 853 ==
LOC: ER 14:51 → CDU1 17:43 → 6NO 04-09 13:05 → SDC/OF 04-15 10:16 → 6NO 04-15 10:18
PROVIDERS: Anesthesiology; Emergency Medicine; Hospitalist; Internal Medicine; Neurological Surgery; Nurse Practitioner Family; Surgery
PROC: 0KBT0ZZ Excision of Left Lower Leg Muscle, Open Approach (ICD-10-PCS; principal; 2017-04-04)
PROC: 047N3ZZ Dilation of Left Popliteal Artery, Percutaneous Approach (ICD-10-PCS; 2017-04-08)
PROC: 047S3ZZ Dilation of Left Posterior Tibial Artery, Percutaneous Approach (ICD-10-PCS; 2017-04-08)
PROC: 047U3ZZ Dilation of Left Peroneal Artery, Percutaneous Approach (ICD-10-PCS; 2017-04-08)
PROC: B41G1ZZ Fluoroscopy of Left Lower Extremity Arteries using Low Osmolar Contrast (ICD-10-PCS; 2017-04-08)
PROC: 0QBP0ZZ Excision of Left Metatarsal, Open Approach (ICD-10-PCS; 2017-04-12)
PROC: 02HV33Z Insertion of Infusion Device into Superior Vena Cava, Percutaneous Approach (ICD-10-PCS; 2017-04-18)
DX: A41.9 Sepsis, unspecified organism (principal); E43 Unspecified severe protein-calorie malnutrition; G93.40 Encephalopathy, unspecified; L89.153 Pressure ulcer of sacral region, stage 3; E11.40 Type 2 diabetes mellitus with diabetic neuropathy, unspecified; I48.0 Paroxysmal atrial fibrillation; E11.621 Type 2 diabetes mellitus with foot ulcer; M86.9 Osteomyelitis, unspecified; E87.1 Hypo-osmolality and hyponatremia; E11.69 Type 2 diabetes mellitus with other specified complication; L89.899 Pressure ulcer of other site, unspecified stage; I25.5 Ischemic cardiomyopathy; I25.10 Atherosclerotic heart disease of native coronary artery without angina pectoris; L03.039 Cellulitis of unspecified toe; I25.2 Old myocardial infarction; I73.9 Peripheral vascular disease, unspecified; K59.00 Constipation, unspecified; K21.9 Gastro-esophageal reflux disease without esophagitis; Z79.01 Long term (current) use of anticoagulants; G89.4 Chronic pain syndrome; F43.21 Adjustment disorder with depressed mood; L97.529 Non-pressure chronic ulcer of other part of left foot with unspecified severity; Z74.01 Bed confinement status; Z88.0 Allergy status to penicillin; F32.9 Major depressive disorder, single episode, unspecified; Z86.14 Personal history of Methicillin resistant Staphylococcus aureus infection; R63.0 Anorexia; Z68.29 Body mass index [BMI] 29.0-29.9, adult; Z88.2 Allergy status to sulfonamides
CPT/HCPCS: 36569; 36600; 37224; 37228; 37232; 70450; 71010; 72040; 73718-LT; 74000; 74150; 75710; 80048; 80053; 80069; 80076; 80202; 81001; 82570; 82805; 82962; 83036; 83605; 83690; 83735; 83880; 83930; 83935; 84100; 84134; 84145; 84300; 84484; 84540; 85025; 85610; 85652; 85730; 86140; 87040; 87070; 87077; 87186; 87205; 88305; 93005; 93923; 96360; 97161-GP; 99285; A9270-GY; C1725; C1751; C1769; C1894; G8978-CN-GP; G8979-CN-GP; G8980-CN-GP; J0690; J0692; J1170; J2405; J2550; J3010; J3370; Q9967

== ENCOUNTER 2017-04-21 15:43 | Emergency (ER) | payer MEDICARE, OTHER ==
[~2017-04-21 15:43] MED LIST changes: +BISR PR; +C2 PO; +FLONASE NAS; +LIOR10 PO; +MOMUD PO; +REFRESH OPH
== END 2017-04-21 17:00 | disposition expired ==
LOC: ER 15:43
PROC: 0BH17EZ Insertion of Endotracheal Airway into Trachea, Via Natural or Artificial Opening (ICD-10-PCS; principal; 2017-04-21)
DX: A41.9 Sepsis, unspecified organism (principal); I46.9 Cardiac arrest, cause unspecified; I48.91 Unspecified atrial fibrillation; I50.9 Heart failure, unspecified; E11.9 Type 2 diabetes mellitus without complications; Z88.0 Allergy status to penicillin; Z88.2 Allergy status to sulfonamides; Z88.8 Allergy status to other drugs, medicaments and biological substances; Z79.01 Long term (current) use of anticoagulants; Z79.899 Other long term (current) drug therapy
CPT/HCPCS: 92950; 99285; J0330